=== PATIENT | male | born 1950 | race Caucasian/White ===

== ENCOUNTER 2019-12-16 10:58 | Inpatient (IN) | payer BC ==
[2019-12-16] MEDS ORDERED: Ketorolac 30 MG/ML SDV IVPUSH ONE (11:18)
--- NOTE | 2019-12-16 11:18 | EDM.PDOC ---
ED HPI GENERAL MEDICAL PROBLEM - General Chief Complaint: Skin Complaint Stated Complaint: GROWTH/ABCESS Time Seen by Provider: 12/16/19 10:59 Source of Information: Reports: Patient History Limitations: Reports: No Limitations - History of Present Illness INITIAL COMMENTS - FREE TEXT/NARRATIVE: HISTORY AND PHYSICAL: History of present illness: Patient is a 69-year-old male who presents to the emergency room with complaints of an abscess on his tailbone x 1 week. He states he has had a lot of pain and pressure to the tailbone and can feel a "growth"- especially when he sits down. He denies feeling any drainage from the area. He states in 2013 he had a similar abscess that had to be drained and he was able to be discharged with antibiotics. Patient denies any fever, chills, headache, change in vision, syncope or near syncope. Denies any chest pain, back pain, shortness of breath or cough. Denies any abdominal pain, nausea, vomiting, diarrhea, constipation or dysuria. Has not noted any blood in urine or stool. Patient has been eating and drinking appropriately. Review of systems: As per history of present illness and below otherwise all systems reviewed and negative. Past medical history: As per history of present illness and as reviewed below otherwise noncontributory. Surgical history: As per history of present illness and as reviewed below otherwise noncontributory. Social history: See social history for further information Family history: As per history of present illness and as reviewed below otherwise noncontributory. Physical exam: General: Well developed and well nourished 69-year-old male. Alert and oriented. Nontoxic-appearing and in no acute distress. HEENT: Atraumatic, normocephalic, pupils equal and reactive bilaterally, negative for conjunctival pallor or scleral icterus, mucous membranes moist, TMs normal bilaterally, throat clear, neck supple, nontender, trachea midline. No drooling or trismus noted. No meningeal signs. No hot potato voice noted. Lungs: Clear to auscultation, breath sounds equal bilaterally, chest nontender. Heart: S1S2, regular rate and rhythm without overt murmur Abdomen: Soft, nondistended, nontender. Negative for masses or hepatosplenomegaly. Negative for costovertebral tenderness. Pelvis: Stable nontender. Rectal: Good rectal tone. Unable to palpate the abscess that is approximately 2 fingerbreadths above the rectum. See SKIN for details of abscess. Skin: Quarter sized area of maceration with serosanguanous drainage. Fluctuant and very tender to touch. Surrounding erythema. Remaining skin is intact, warm, dry. No lesions or rashes noted. Extremities: Atraumatic, moves all extremities per self without difficulty or deficits, negative for cords or calf pain. Neurovascular unremarkable. Neuro: Awake, alert, oriented. Cranial nerves II through XII unremarkable. Cerebellum unremarkable. Motor and sensory unremarkable throughout. Exam nonfocal. Notes: CT had some delays as the report was not crossing over. Physical copy of the CT shows soft tissue fullness is seen in the right side of the rectum. Borders of this are ill-defined and measure around 5.2 cm. No well-defined abscess is seen. Radiographically this finding may represent infection as well as neoplasm. Patient does have an elevated white count. Elevated lactate; NS bolus initiated. Dr. Interiano, hospitalist on-call, was consulted on this patient. He wants to come and evaluate the patient before admission. He did recommend vancomycin, blood cultures and lactate be ordered at this time. Patient was made aware of the CT findings and is agreeable to plan of care. Diagnostics: CBC, CMP, Pelvis CT, BC, x2, lactic Therapeutics: Toradol, Morphine, NS, Vancomycin Impression: Gluteal Cellulitis and perirectal abscess Plan: Inpatient admission Definitive disposition and diagnosis as appropriate pending reevaluation and review of above. Left Buttock Pain Score (Numeric/FACES): 8 - Related Data Allergies Allergy/AdvReac Type Severity Reaction Status Date / Time No Known Allergies Allergy Verified 12/16/19 11:23 Home Meds: Home Meds Aspirin [Anuja Chewable Aspirin] 1 tab PO DAILY 07/22/14 [History] ED ROS GENERAL - Review of Systems Review Of Systems: Comprehensive ROS is negative, except as noted in HPI. ED EXAM, SKIN/RASH Exam: See Below (See dictation) Course - Vital Signs Last Recorded V/S: Last Vital Signs Temp 97.8 F 12/16/19 13:51 Pulse 118 H 12/16/19 13:51 Resp 16 12/16/19 13:51 BP 159/105 H 12/16/19 13:51 Pulse Ox 96 12/16/19 13:51 - Orders/Labs/Meds Orders: Active Orders 24 hr Category Date Time Status Admission Status [Patient Status] [ADT] Stat ADT 12/16/19 14:46 Active Pelvis w Cont [CT] Stat Exams 12/16/19 11:13 Taken CULTURE BLOOD [BC] Stat Lab 12/16/19 13:55 Received CULTURE BLOOD [BC] Stat Lab 12/16/19 14:06 Received Sodium Chloride 0.9% [Normal Saline] 1,000 ml Med 12/16/19 13:36 Active IV STAT Vancomycin 1 gm Med 12/16/19 13:47 Active Sodium Chloride 0.9% [Normal Saline (AdvBag)] 250 ml IV ONETIME Blood Culture x2 Reflex Set [OM.PC] Stat Oth 12/16/19 13:47 Ordered Medication Orders Sodium Chloride (Normal Saline) 1,000 mls @ 125 mls/hr IV STAT ONE Stop: 12/16/19 21:35 Last Infusion: 12/16/19 14:48 Dose: 999 mls/hr Admin: 12/16/19 13:40 Dose: 125 mls/hr Vancomycin HCl 1 gm/ Sodium (Chloride) 250 mls @ 166 mls/hr IV ONETIME ONE Stop: 12/16/19 15:17 Last Admin: 12/16/19 14:22 Dose: 166 mls/hr Labs: Laboratory Tests 12/16/19 12/16/19 12/16/19 Range/Units 11:27 11:27 13:55 WBC 11.74 H (4.0-11.0) K/uL RBC 5.42 (4.50-5.90) M/uL Hgb 19.2 H (13.0-17.0) g/dL Hct 51.8 H (38.0-50.0) % MCV 95.6 (80.0-98.0) fL MCH 35.4 H (27.0-32.0) pg MCHC 37.1 H (31.0-37.0) g/dL RDW Std Deviation 42.1 (28.0-62.0) fl RDW Coeff of Sara 12 (11.0-15.0) % Plt Count 162 (150-400) K/uL MPV 11.20 (7.40-12.00) fL Neut % (Auto) 67.7 (48.0-80.0) % Lymph % (Auto) 19.8 (16.0-40.0) % [place] % (Auto) 11.8 (0.0-15.0) % Eos % (Auto) 0.3 (0.0-7.0) % Baso % (Auto) 0.4 (0.0-1.5) % Neut # (Auto) 7.9 H (1.4-5.7) K/uL Lymph # (Auto) 2.3 (0.6-2.4) K/uL [place] # (Auto) 1.4 H (0.0-0.8) K/uL Eos # (Auto) 0.0 (0.0-0.7) K/uL Baso # (Auto) 0.1 (0.0-0.1) K/uL Nucleated RBC % 0.0 /100WBC Nucleated RBCs # 0 K/uL Lactate 2.4 H* (0.20-2.00) mmol/L Sodium 133 L (136-148) mmol/L Potassium 4.0 (3.5-5.1) mmol/L Chloride 93 L (98-107) mmol/L Carbon Dioxide 24.3 (21.0-32.0) mmol/L BUN 8 (7.0-18.0) mg/dL Creatinine 1.0 (0.8-1.3) mg/dL Est Cr Clr Drug Dosing 74.01 mL/min Estimated GFR (MDRD) > 60.0 ml/min Glucose 347 H (74-106) mg/dL Calcium 10.0 (8.5-10.1) mg/dL Total Bilirubin 1.0 (0.2-1.0) mg/dL AST 112 H (15-37) IU/L ALT 142 H (14-63) IU/L Alkaline Phosphatase 137 H (46-116) U/L Total Protein 8.3 H (6.4-8.2) g/dL Albumin 3.8 (3.4-5.0) g/dL Globulin 4.5 H (2.6-4.0) g/dL Albumin/Globulin Ratio 0.8 L (0.9-1.6) Meds: Medications Generic Name Dose Route Start Last Admin Trade Name Freq PRN Reason Stop Dose Admin Sodium Chloride 1,000 mls @ 125 mls/hr 12/16/19 13:36 12/16/19 14:48 Normal Saline IV 12/16/19 21:35 999 mls/hr STAT ONE Infusion Vancomycin HCl 1 gm/ Sodium 250 mls @ 166 mls/hr 12/16/19 13:47 12/16/19 14: 22 Chloride IV 12/16/19 15:17 166 mls/hr ONETIME ONE Administration Discontinued Medications Generic Name Dose Route Start Last Admin Trade Name Debby PRN Reason Stop Dose Admin Ketorolac Tromethamine 30 mg 12/16/19 11:18 12/16/19 11:35 Toradol IVPUSH 12/16/19 11:19 30 mg ONETIME ONE Administration Lidocaine HCl 5 ml 12/16/19 12:52 Xylocaine-Mpf 1% INJECT 12/16/19 12:53 ONETIME ONE Morphine Sulfate 2 mg 12/16/19 13:53 12/16/19 14:23 Morphine IVPUSH 12/16/19 13:54 2 mg ONETIME ONE Administration Departure - Departure Time of Disposition: 14:50 Disposition: Admitted As Inpatient 68 Clinical Impression: Perirectal abscess Cellulitis Qualifiers: Site of cellulitis: buttock Qualified Code(s): L03.317 - Cellulitis of buttock - Discharge Information Referrals: Momo Perry MD [Primary Care Provider] - Forms: ED Department Discharge Sepsis Event Note - Focused Exam Vital Signs: Vital Signs Temp Pulse Resp BP Pulse Ox 12/16/19 13:51 97.8 F 118 H 16 159/105 H 96 12/16/19 11:21 98.3 F 122 H 19 168/100 H 97 Date Exam was Performed: 12/16/19 Time Exam was Performed: 14:48 - My Orders Last 24 Hours: My Active Orders 12/16/19 11:13 Pelvis w Cont [CT] Stat 12/16/19 13:36 Sodium Chloride 0.9% [Normal Saline] 1,000 ml IV STAT 12/16/19 13:47 Vancomycin 1 gm Sodium Chloride 0.9% [Normal Saline (AdvBag)] 250 ml IV ONETIME Blood Culture x2 Reflex Set [OM.PC] Stat 12/16/19 13:55 CULTURE BLOOD [BC] Stat 12/16/19 14:06 CULTURE BLOOD [BC] Stat 12/16/19 14:46 Admission Status [Patient Status] [ADT] Stat - Assessment/Plan Last 24 Hours: My Active Orders 12/16/19 11:13 Pelvis w Cont [CT] Stat 12/16/19 13:36 Sodium Chloride 0.9% [Normal Saline] 1,000 ml IV STAT 12/16/19 13:47 Vancomycin 1 gm Sodium Chloride 0.9% [Normal Saline (AdvBag)] 250 ml IV ONETIME Blood Culture x2 Reflex Set [OM.PC] Stat 12/16/19 13:55 CULTURE BLOOD [BC] Stat 12/16/19 14:06 CULTURE BLOOD [BC] Stat 12/16/19 14:46 Admission Status [Patient Status] [ADT] Stat
[2019-12-16 12:13] LABS: BLOOD UREA NITROGEN,BUN 8 mg/dL (7.0-18.0); CARBON DIOXIDE,CO2 24.3 mmol/L (21.0-32.0); CHLORIDE,CL 93 mmol/L (98-107); GLUCOSE RANDOM 347 mg/dL (74-106); SODIUM,NA 133 mmol/L (136-148)
[2019-12-16] MEDS ORDERED: Sodium Chloride 0.9% 1,000 ML IV ONE (13:36)
[2019-12-16] MEDS ORDERED: Morphine 2 MG/ML Syringe IVPUSH ONE (13:53)
--- NOTE | 2019-12-16 15:43 | PCM.HP.2 ---
H&P History of Present Illness - General Date of Service: 12/16/19 Admit Problem/Dx: Admission Diagnosis/Problem Admission Diagnosis/Problem Perirectal abscess - History of Present Illness Initial Comments - Free Text/Narative: 69 yo male who presents with several day history of pain and pressure above his rectum. He has notice purulent drainage. In the ED it started to drain alot more and he felt the pressure relieve. He reports several years ago have a perirectal abscess that was treated with antibiotics. He denies any fevers. Left Buttock Pain Score (Numeric/FACES): 8 - Related Data Allergies/Adverse Reactions: Allergies Allergy/AdvReac Type Severity Reaction Status Date / Time No Known Allergies Allergy Verified 12/16/19 11:23 Home Medications: Home Meds Aspirin [Anuja Chewable Aspirin] 1 tab PO DAILY 07/22/14 [History] Past Medical History Cardiovascular History: Reports: High Cholesterol, Hypertension Dermatologic History: Reports: Other (See Below) Other Dermatologic History: Surigcal draining of abscess - Infectious Disease History Infectious Disease History: Reports: Chicken Pox, Mumps - Past Surgical History Cardiovascular Surgical History: Reports: None Dermatological Surgical History: Reports: None Social & Family History - Family History Family Medical History: Noncontributory - Tobacco Use Smoking Status *Q: Current Every Day Smoker Years of Tobacco use: 30 Packs/Tins Daily: 1 - Caffeine Use Caffeine Use: Reports: Coffee, Soda - Recreational Drug Use Recreational Drug Use: No H&P Review of Systems - Review of Systems: Review Of Systems: Comprehensive ROS is negative, except as noted in HPI. Exam - Exam Exam: See Below - Vital Signs Vital Signs: Last Vital Signs Temp 36.6 C 12/16/19 13:51 Pulse 118 H 12/16/19 13:51 Resp 16 12/16/19 13:51 BP 159/105 H 12/16/19 13:51 Pulse Ox 96 12/16/19 13:51 Weight: 90.718 kg - Exam General: Alert, Oriented HEENT: Mucosa Moist & [place] Neck: Supple Lungs: Clear to Auscultation, Normal Respiratory Effort Cardiovascular: Regular Rate, Regular Rhythm GI/Abdominal Exam: Soft, Non-Tender Rectal (Males) Exam: Other (4-5 cm area of induration above the rectum with central area of fluctuance, no purulent dranage was noted but bed and breif was wet with rust colored fluid) - Patient Data Lab Results Last 24 hrs: Laboratory Results - last 24 hr 12/16/19 12/16/19 12/16/19 Range/Units 11:27 11:27 13:55 WBC 11.74 H (4.0-11.0) K/uL RBC 5.42 (4.50-5.90) M/uL Hgb 19.2 H (13.0-17.0) g/dL Hct 51.8 H (38.0-50.0) % MCV 95.6 (80.0-98.0) fL MCH 35.4 H (27.0-32.0) pg MCHC 37.1 H (31.0-37.0) g/dL RDW Std Deviation 42.1 (28.0-62.0) fl RDW Coeff of Sara 12 (11.0-15.0) % Plt Count 162 (150-400) K/uL MPV 11.20 (7.40-12.00) fL Neut % (Auto) 67.7 (48.0-80.0) % Lymph % (Auto) 19.8 (16.0-40.0) % [place] % (Auto) 11.8 (0.0-15.0) % Eos % (Auto) 0.3 (0.0-7.0) % Baso % (Auto) 0.4 (0.0-1.5) % Neut # (Auto) 7.9 H (1.4-5.7) K/uL Lymph # (Auto) 2.3 (0.6-2.4) K/uL [place] # (Auto) 1.4 H (0.0-0.8) K/uL Eos # (Auto) 0.0 (0.0-0.7) K/uL Baso # (Auto) 0.1 (0.0-0.1) K/uL Nucleated RBC % 0.0 /100WBC Nucleated RBCs # 0 K/uL Lactate 2.4 H* (0.20-2.00) mmol/L Sodium 133 L (136-148) mmol/L Potassium 4.0 (3.5-5.1) mmol/L Chloride 93 L (98-107) mmol/L Carbon Dioxide 24.3 (21.0-32.0) mmol/L BUN 8 (7.0-18.0) mg/dL Creatinine 1.0 (0.8-1.3) mg/dL Est Cr Clr Drug Dosing 74.01 mL/min Estimated GFR (MDRD) > 60.0 ml/min Glucose 347 H (74-106) mg/dL Calcium 10.0 (8.5-10.1) mg/dL Total Bilirubin 1.0 (0.2-1.0) mg/dL AST 112 H (15-37) IU/L ALT 142 H (14-63) IU/L Alkaline Phosphatase 137 H (46-116) U/L Total Protein 8.3 H (6.4-8.2) g/dL Albumin 3.8 (3.4-5.0) g/dL Globulin 4.5 H (2.6-4.0) g/dL Albumin/Globulin Ratio 0.8 L (0.9-1.6) Result Diagrams: 12/17/19 06:55 12/17/19 06:55 Sepsis Event Note - Evaluation Sepsis Screening Result: No Definite Risk - Focused Exam Vital Signs: Vital Signs Temp Pulse Resp BP Pulse Ox 12/16/19 13:51 36.6 C 118 H 16 159/105 H 96 12/16/19 11:21 36.8 C 122 H 19 168/100 H 97 Date Exam was Performed: 12/17/19 Time Exam was Performed: 08:04 Problem List Initiated/Reviewed/Updated: Yes Orders Last 24hrs: Active Orders 24 hr Category Date Time Status Admission Status [Patient Status] [ADT] Stat ADT 12/16/19 14:46 Active Antiembolic Devices [RC] PER UNIT ROUTINE Care 12/16/19 15:31 Ordered Blood Glucose Check, Bedside [RC] TIDMEALS Care 12/16/19 15:30 Ordered Oxygen Therapy [RC] PRN Care 12/16/19 15:30 Ordered Up ad Kendra [RC] ASDIRECTED Care 12/16/19 15:30 Ordered VTE/DVT Education [RC] PER UNIT ROUTINE Care 12/16/19 15:30 Ordered Vital Signs [RC] Q4H Care 12/16/19 15:30 Ordered [employer] [employer] Diet [DIET] Diet 12/16/19 Breakfast Ordered Pelvis w Cont [CT] Stat Exams 12/16/19 11:13 Taken BASIC METABOLIC PANEL,BMP [CHEM] AM Lab 12/17/19 05:11 Ordered CBC WITH AUTO DIFF [HEME] AM Lab 12/17/19 05:11 Ordered CULTURE BLOOD [BC] Stat Lab 12/16/19 13:55 Received CULTURE BLOOD [BC] Stat Lab 12/16/19 14:06 Received LACTIC ACID,WHOLE BLOOD [BG] Q6H Lab 12/16/19 19:00 Ordered LACTIC ACID,WHOLE BLOOD [BG] Q6H Lab 12/17/19 01:00 Ordered LACTIC ACID,WHOLE BLOOD [BG] Q6H Lab 12/17/19 07:00 Ordered Pharmacy to Dose - Vancomycin Med 12/16/19 15:30 Ordered 1 dose .XX ASDIRECTED Piperacillin/Tazobactam [Piperacil-Tazobact] 3.375 gm Med 12/16/19 15:30 Ordered Sodium Chloride 0.9% [Normal Saline] 50 ml IV Q6H Sodium Chloride 0.9% [Normal Saline] 1,000 ml Med 12/16/19 13:36 Active IV STAT Blood Culture x2 Reflex Set [OM.PC] Stat Oth 12/16/19 13:47 Ordered Sequential Compression Device [OM.PC] Per Unit Routine Oth 12/16/19 15:30 Ordered Resuscitation Status Routine Resus Stat 12/16/19 15:30 Ordered Medication Orders Sodium Chloride (Normal Saline) 1,000 mls @ 125 mls/hr IV STAT ONE Stop: 12/16/19 21:35 Last Infusion: 12/16/19 14:49 Dose: 300 mls/hr Infusion: 12/16/19 14:48 Dose: 999 mls/hr Admin: 12/16/19 13:40 Dose: 125 mls/hr Piperacillin Sod/Tazobactam (Sod 3.375 gm/ Sodium Chloride) 50 mls @ 100 mls/ hr IV Q6H [facility] Vancomycin HCl (Pharmacy To Dose - Vancomycin) 1 dose .XX ASDIRECTED [facility] Assessment/Plan Comment:: 69 yo male admitted for perirectal abscess with sepsis. We will treat with Vancomycin and Zosyn. Patient feeling better after IV fluids. We will trend lactic acid. Dr. Lira has been consulted
[2019-12-16] MEDS ORDERED: Iopamidol 755 MG/ML 200 ML Multipack Bottle IVPUSH STA (15:59)
[2019-12-16] MEDS: Piperacillin/Tazobactam 3.375 GM in Sodium Chloride 0.9% 50 ML IV SCH ×2 (16:52→21:45)
[2019-12-16] MEDS: Sodium Chloride 0.9% 1,000 ML IV SCH (17:05)
[2019-12-16] MEDS ORDERED: Acetaminophen 325 MG Tab PO PRN (17:32)
[2019-12-16] MEDS: Nicotine 14 MG/24 Hr Patch TRDERM SCH (17:57)
[2019-12-16] MEDS: oxyCODONE 5 MG Tab PO PRN ×2 (17:58→23:39)
[2019-12-16] MEDS: Morphine 2 MG/ML Syringe IVPUSH PRN ×2 (17:59→21:47)
[2019-12-16] MEDS ORDERED: Insulin Aspart 100 Units/ML 3 ML Pen ONE (18:08)
[2019-12-16] MEDS ORDERED: Morphine 4 MG/ML Syringe IVPUSH ONE (19:30)
--- NOTE | 2019-12-16 19:33 | CT ---
CT pelvis Technique: Multiple axial sections through the pelvis were obtained. Reconstructed coronal and sagittal images were obtained. Intravenous contrast was utilized. No oral or rectal contrast was given. Findings: Soft tissue fullness is seen to the right side of the rectum. Borders of this are ill-defined and measure around 5.2 cm. No well-defined abscess is seen. Radiographically this finding may represent infection as well as neoplasm. Perirectal fat is preserved. Other findings: Minimal cyst is noted within the right kidney. Appendix is felt to be visualized and is normal. No pelvic mass or adenopathy is seen. Bone window settings were reviewed which show no acute osseous finding. Degenerative change visualized within the spine with anterior osteophytes as well as vacuum disc phenomena within the L5-S1 disc. Degenerative apophyseal change is also noted. Impression: 1. Soft tissue fullness to the right side of the rectum. No well-defined abscess is seen. As mentioned above, this finding may represent infection as well as neoplasm. 2. Other findings as noted above which are felt to be nonacute and incidental. Diagnostic code #3 Study was dictated in MDT MTDD
--- NOTE | 2019-12-16 19:35 | PCM.SN ---
- Free Text/Narrative Note: pt seen, chart reviewed; perirectal abscess, would benefit timely i/d; pt concurred, proceed w id; [id number]
[2019-12-16] MEDS ORDERED: Lidocaine 1% with EPINEPHrine 1:100,000 10 ML MDV INJECT ONE (19:42)
--- NOTE | 2019-12-16 20:29 | PCM.OPNOTE ---
- General Post-Op/Procedure Note Date of Surgery/Procedure: 12/16/19 Operative Procedure(s): i/d perirectal abscess Findings: large amt foul smelling, 75 cc necrotic liquified pus rushing out, wound 2.1 cm , packed w 1/4 in iodoform gauze;[id number] Pre Op Diagnosis: perirectal abscess Post-Op Diagnosis: Same Anesthesia Technique: Local Primary Surgeon: Bhavik Lira Pathology: gstain, c n s Complications: None Condition: Fair Free Text/Narrative:: Intake & Output 12/16/19 12/16/19 12/16/19 06:59 14:59 22:59 Intake Total 999 Balance 999
--- NOTE | 2019-12-16 20:35 | PCM.SN ---
- Free Text/Narrative Note: i/d done at bedside; pt can be discharged home in the morning from surg standpoint; wound care, 1) warm water sitz bath every BM till wound heal; 2) clindamycin 300 mg po tid X 1 wk 3) wound packing change everyday using iodoform gauze 10/06; scripts for abx and pain meds written; tks for the consult and care of this nice gentleman; if dc home, rhianna amador 1 - 2 wks
--- NOTE | 2019-12-17 00:06 | OR ---
SURGEON: Bhavik Lira MD DATE OF PROCEDURE: 12/16/2019 PREOPERATIVE DIAGNOSIS: Perirectal abscess. POSTOPERATIVE DIAGNOSIS: Perirectal abscess. PROCEDURE PERFORMED: Incision and drainage. PRIMARY SURGEON: Bhavik Lira MD. COMPLICATIONS: None. FINDING: A large amount of foul smelling 75 mL necrotic liquified pus rushing out, and the wound is 2.1 cm, packed with quarter-inch iodoform gauze. DESCRIPTION OF PROCEDURE: Procedure performed at bedside after informed consent given. The patient has signed consent and risks and benefits discussed. Procedure then started. The patient was in a left decub position, left side down, right side up, and the perineum area was prepped and draped in a sterile fashion, and using 1% lidocaine with epi, the area was numbed and using a 15 blade, a small incision was made right at the fluctuance area, resulting in a large amount of foul smelling necrotic liquified pus coming out, followed with surgeon's finger to dislodge all the loculation, and the wound was then packed with a quarter-inch iodoform gauze and appropriate dressing. The patient tolerated the procedure well. There were no intraoperative complications. Dr. Lira was present through the whole procedure. Gram stain C and S sent from drainage. NELA / LEONEL /[id number]
--- NOTE | 2019-12-17 00:27 | CONS ---
DATE OF CONSULTATION: 12/16/2019 DATE OF : 1950 PRIMARY CARE PHYSICIAN: Momo Perry M.D. Consult was called by Dr. Interiano. The patient is seen shortly after. REASON FOR CONSULTATION: Concerning question, perirectal abscess. HISTORY OF PRESENT ILLNESS: The patient is 69 years old morbidly obese gentleman, heavy smoker and complaining with a 10-day history of gradual onset of rectal pain, seen in emergency room today and was admitted to medical for further management. In the emergency room, apparently it ruptured and drained a lot. The patient's pain is relieved. The patient denied fever, chills, or diarrhea. PAST MEDICAL HISTORY: Significant for prediabetic. No DC, CVA, hypertension. Mallampati classification, the patient is class III and denied any past history of malignant hyperthermia. PAST SURGICAL HISTORY: No abdominal surgery. The patient does have a history of a perirectal abscess drained 20 years ago. ALLERGIES: Please refer to nursing for details. MEDICATION: Please refer to nursing for details. PHYSICAL EXAMINATION: GENERAL: A very pleasant gentleman, in no acute distress. HEENT: Normocephalic and atraumatic. Sclerae anicteric. LUNGS: Clear to auscultation. HEART: Regular rate and rhythm. ABDOMEN: Soft, nondistended. No pulsating tender midline abdominal structure. : Male. The patient is in prone position. On the right side almost like in the sacral area there is blister-like fluctuance. There is no sacral tenderness and no expressed material. It is pretty full. Whatever the situation is, it looks like it has been refilled, although it has been ruptured. RECOMMENDATION: Bedside I and D and followed with Wound Care with dressing change and plan has been discussed with patient. The patient is thinking about it. If not bedside I and D, we will take to the operating room for I and D and follow with Wound Care. Benefits in this particular situation, risks involved with postoperative course, pain and wound care and dressing change as well as recurrence as the patient is a heavy smoker. As always, thank you for your kind referral. NELA / LEONEL /[id number]
[2019-12-17] MEDS: Morphine 2 MG/ML Syringe IVPUSH PRN ×2 (01:44→06:19)
[2019-12-17] MEDS: Piperacillin/Tazobactam 3.375 GM in Sodium Chloride 0.9% 50 ML IV SCH ×2 (04:02→11:13)
[2019-12-17] MEDS ORDERED: Sodium Chloride 0.9% 500 ML IV SCH (05:45)
[2019-12-17 07:18] LABS: BLOOD UREA NITROGEN,BUN 6 mg/dL (7.0-18.0); CHLORIDE,CL 100 mmol/L (98-107); GLUCOSE RANDOM 297 mg/dL (74-106); POTASSIUM,K 4.2 mmol/L (3.5-5.1); SODIUM,NA 135 mmol/L (136-148)
[2019-12-17] MEDS ORDERED: Insulin Aspart 100 Units/ML 3 ML Pen SUBCUT SCH (07:30)
[2019-12-17] MEDS: Sodium Chloride 0.9% 1,000 ML IV SCH (07:32)
[2019-12-17 07:48] VITALS: BP 129/64; PULSE 67
--- NOTE | 2019-12-17 07:56 | PCM.DCSUM1 ---
Discharge Summary - Discharge Data Discharge Date: 12/17/19 Discharge Disposition: Home, Self-Care 01 Condition: Fair - Referral to Home Health Primary Care Physician: Momo Perry MD - Patient Summary/Data Operative Procedure(s) Performed: i/d perirectal abscess Hospital Course: 69 yo male who was admitted for a perirectal abscess. He presents with several day history of pain and pressure above his rectum. WBC was 11,000 and Lactic acid was 2.4. CT scan of the pelvis showed a 5 cm tissue fullness on the right of the rectum. He was treated with Vancomycin, Zosyn, and IV fluids. Dr. Lira was consulted and performed and I&D of the perirectal abscess. The following morning his tachycardia, leukocytosis and lactic acid returned to normal. He is requesting discharge today. Patient is to be discharge with a week of clindamycin, percocet and to follow up with Dr. Lira. - Discharge Plan Home Medications: Home Meds Aspirin [Anuja Chewable Aspirin] 1 tab PO DAILY 07/22/14 [History] Referrals: Momo Perry MD [Primary Care Provider] - Bhavik Lira MD [Physician] - - Discharge Summary/Plan Comment DC Time >30 min.: No - Patient Data Vitals - Most Recent: Last Vital Signs Temp 36.1 C 12/17/19 04:01 Pulse 76 12/17/19 04:01 Resp 17 12/17/19 04:01 BP 139/69 12/17/19 04:01 Pulse Ox 98 12/17/19 04:01 Weight - Most Recent: 896.032 kg I&O - Last 24 hours: Intake & Output 12/16/19 12/17/19 12/17/19 22:59 06:59 14:59 Intake Total 999 3290 Output Total 950 Balance 999 2340 Lab Results - Last 24 hrs: Laboratory Results - last 24 hr 12/16/19 12/16/19 12/16/19 Range/Units 11:27 11:27 13:55 WBC 11.74 H (4.0-11.0) K/uL RBC 5.42 (4.50-5.90) M/uL Hgb 19.2 H (13.0-17.0) g/dL Hct 51.8 H (38.0-50.0) % MCV 95.6 (80.0-98.0) fL MCH 35.4 H (27.0-32.0) pg MCHC 37.1 H (31.0-37.0) g/dL RDW Std Deviation 42.1 (28.0-62.0) fl RDW Coeff of Sara 12 (11.0-15.0) % Plt Count 162 (150-400) K/uL MPV 11.20 (7.40-12.00) fL Neut % (Auto) 67.7 (48.0-80.0) % Lymph % (Auto) 19.8 (16.0-40.0) % Esmeralda % (Auto) 11.8 (0.0-15.0) % Eos % (Auto) 0.3 (0.0-7.0) % Baso % (Auto) 0.4 (0.0-1.5) % Neut # (Auto) 7.9 H (1.4-5.7) K/uL Lymph # (Auto) 2.3 (0.6-2.4) K/uL Esmeralda # (Auto) 1.4 H (0.0-0.8) K/uL Eos # (Auto) 0.0 (0.0-0.7) K/uL Baso # (Auto) 0.1 (0.0-0.1) K/uL Nucleated RBC % 0.0 /100WBC Nucleated RBCs # 0 K/uL Lactate 2.4 H* (0.20-2.00) mmol/L Sodium 133 L (136-148) mmol/L Potassium 4.0 (3.5-5.1) mmol/L Chloride 93 L (98-107) mmol/L Carbon Dioxide 24.3 (21.0-32.0) mmol/L BUN 8 (7.0-18.0) mg/dL Creatinine 1.0 (0.8-1.3) mg/dL Est Cr Clr Drug Dosing 74.01 mL/min Estimated GFR (MDRD) > 60.0 ml/min Glucose 347 H (74-106) mg/dL POC Glucose (60-110) mg/dL Calcium 10.0 (8.5-10.1) mg/dL Total Bilirubin 1.0 (0.2-1.0) mg/dL AST 112 H (15-37) IU/L ALT 142 H (14-63) IU/L Alkaline Phosphatase 137 H (46-116) U/L Total Protein 8.3 H (6.4-8.2) g/dL Albumin 3.8 (3.4-5.0) g/dL Globulin 4.5 H (2.6-4.0) g/dL Albumin/Globulin Ratio 0.8 L (0.9-1.6) 12/16/19 12/16/19 12/17/19 Range/Units 17:13 19:19 01:08 WBC (4.0-11.0) K/uL RBC (4.50-5.90) M/uL Hgb (13.0-17.0) g/dL Hct (38.0-50.0) % MCV (80.0-98.0) fL MCH (27.0-32.0) pg MCHC (31.0-37.0) g/dL RDW Std Deviation (28.0-62.0) fl RDW Coeff of Sara (11.0-15.0) % Plt Count (150-400) K/uL MPV (7.40-12.00) fL Neut % (Auto) (48.0-80.0) % Lymph % (Auto) (16.0-40.0) % Esmeralda % (Auto) (0.0-15.0) % Eos % (Auto) (0.0-7.0) % Baso % (Auto) (0.0-1.5) % Neut # (Auto) (1.4-5.7) K/uL Lymph # (Auto) (0.6-2.4) K/uL Esmeralda # (Auto) (0.0-0.8) K/uL Eos # (Auto) (0.0-0.7) K/uL Baso # (Auto) (0.0-0.1) K/uL Nucleated RBC % /100WBC Nucleated RBCs # K/uL Lactate 2.1 H* 2.3 H* (0.20-2.00) mmol/L Sodium (136-148) mmol/L Potassium (3.5-5.1) mmol/L Chloride (98-107) mmol/L Carbon Dioxide (21.0-32.0) mmol/L BUN (7.0-18.0) mg/dL Creatinine (0.8-1.3) mg/dL Est Cr Clr Drug Dosing mL/min Estimated GFR (MDRD) ml/min Glucose (74-106) mg/dL POC Glucose 215 H (60-110) mg/dL Calcium (8.5-10.1) mg/dL Total Bilirubin (0.2-1.0) mg/dL AST (15-37) IU/L ALT (14-63) IU/L Alkaline Phosphatase (46-116) U/L Total Protein (6.4-8.2) g/dL Albumin (3.4-5.0) g/dL Globulin (2.6-4.0) g/dL Albumin/Globulin Ratio (0.9-1.6) 12/17/19 12/17/19 12/17/19 Range/Units 06:55 06:55 06:55 WBC 7.74 (4.0-11.0) K/uL RBC 4.33 L (4.50-5.90) M/uL Hgb 14.6 (13.0-17.0) g/dL Hct 42.1 (38.0-50.0) % MCV 97.2 (80.0-98.0) fL MCH 33.7 H (27.0-32.0) pg MCHC 34.7 (31.0-37.0) g/dL RDW Std Deviation 43.1 (28.0-62.0) fl RDW Coeff of Sara 12 (11.0-15.0) % Plt Count 157 (150-400) K/uL MPV 9.60 (7.40-12.00) fL Neut % (Auto) 50.6 (48.0-80.0) % Lymph % (Auto) 31.3 (16.0-40.0) % Esmeralda % (Auto) 14.1 (0.0-15.0) % Eos % (Auto) 3.2 (0.0-7.0) % Baso % (Auto) 0.8 (0.0-1.5) % Neut # (Auto) 3.9 (1.4-5.7) K/uL Lymph # (Auto) 2.4 (0.6-2.4) K/uL Esmeralda # (Auto) 1.1 H (0.0-0.8) K/uL Eos # (Auto) 0.3 (0.0-0.7) K/uL Baso # (Auto) 0.1 (0.0-0.1) K/uL Nucleated RBC % 0.0 /100WBC Nucleated RBCs # 0 K/uL Lactate 1.2 (0.20-2.00) mmol/L Sodium 135 L (136-148) mmol/L Potassium 4.2 (3.5-5.1) mmol/L Chloride 100 (98-107) mmol/L Carbon Dioxide 27.0 (21.0-32.0) mmol/L BUN 6 L (7.0-18.0) mg/dL Creatinine 0.8 (0.8-1.3) mg/dL Est Cr Clr Drug Dosing 92.52 mL/min Estimated GFR (MDRD) > 60.0 ml/min Glucose 297 H (74-106) mg/dL POC Glucose (60-110) mg/dL Calcium 8.2 L (8.5-10.1) mg/dL Total Bilirubin (0.2-1.0) mg/dL AST (15-37) IU/L ALT (14-63) IU/L Alkaline Phosphatase (46-116) U/L Total Protein (6.4-8.2) g/dL Albumin (3.4-5.0) g/dL Globulin (2.6-4.0) g/dL Albumin/Globulin Ratio (0.9-1.6) Med Orders - Current: Current Medications Acetaminophen (Tylenol) 650 mg PO Q6H PRN PRN Reason: Pain (mild 1-3) Piperacillin Sod/Tazobactam (Sod 3.375 gm/ Sodium Chloride) 50 mls @ 100 mls/ hr IV Q6H [facility] Last Admin: 12/17/19 04:02 Dose: 100 mls/hr Sodium Chloride (Normal Saline) 1,000 mls @ 125 mls/hr IV ASDIRECTED [facility] Last Admin: 12/17/19 07:32 Dose: 125 mls/hr Vancomycin HCl 1.5 gm/ Premix 300 mls @ 150 mls/hr IV Q12H [facility] Last Admin: 03/15/20 23:40 Dose: 150 mls/hr Sodium Chloride (Normal Saline) 500 mls @ 1,000 mls/hr IV .BOLUS LILIANA Last Admin: 12/17/19 06:14 Dose: 1,000 mls/hr Insulin Aspart (Novolog) 0 unit SUBCUT TIDAC [facility]; Protocol Morphine Sulfate (Morphine) 2 mg IVPUSH Q3H PRN PRN Reason: Pain (severe 7-10) Last Admin: 12/17/19 06:19 Dose: 2 mg Nicotine (Habitrol) 14 mg TRDERM DAILY [facility] Last Admin: 12/16/19 17:57 Dose: 14 mg Oxycodone HCl (Oxycodone) 5 mg PO Q4H PRN PRN Reason: Pain (moderate 4-6) Last Admin: 12/16/19 23:39 Dose: 5 mg Vancomycin HCl (Pharmacy To Dose - Vancomycin) 1 dose .XX ASDIRECTED [facility] Discontinued Medications Sodium Chloride (Normal Saline) 1,000 mls @ 125 mls/hr IV STAT ONE Stop: 12/16/19 21:35 Last Infusion: 12/16/19 15:48 Dose: 999 mls/hr Vancomycin HCl 1 gm/ Sodium (Chloride) 250 mls @ 166 mls/hr IV ONETIME ONE Stop: 12/16/19 15:17 Last Admin: 12/16/19 14:22 Dose: 166 mls/hr Vancomycin HCl 1.5 gm/ Premix 300 mls @ 150 mls/hr IV Q12H [facility] Last Admin: 12/17/19 05:29 Dose: Not Given Insulin Aspart (Novolog) Confirm Administered Dose 300 unit .ROUTE .STK-MED ONE Stop: 12/16/19 18:09 Last Admin: 12/16/19 18:12 Dose: 2 units Iopamidol (Isovue Multipack-370 (76%)) 100 ml IVPUSH ONETIME STA Stop: 12/16/19 16:00 Last Admin: 12/16/19 16:00 Dose: 100 ml Ketorolac Tromethamine (Toradol) 30 mg IVPUSH ONETIME ONE Stop: 12/16/19 11:19 Last Admin: 12/16/19 11:35 Dose: 30 mg Lidocaine HCl (Xylocaine-Mpf 1%) 5 ml INJECT ONETIME ONE Stop: 12/16/19 12:53 Last Admin: 12/16/19 15:01 Dose: Not Given Lidocaine/Epinephrine (Xylocaine 1% With Epinephrine 1:100,000) 10 ml INJECT ONETIME ONE Stop: 12/16/19 19:43 Last Admin: 12/16/19 21:25 Dose: 6 ml Morphine Sulfate (Morphine) 2 mg IVPUSH ONETIME ONE Stop: 12/16/19 13:54 Last Admin: 12/16/19 14:23 Dose: 2 mg Morphine Sulfate (Morphine) 3 mg IVPUSH ONETIME ONE Stop: 12/16/19 19:31 Last Admin: 12/16/19 19:48 Dose: 3 mg
[2019-12-17] MEDS: oxyCODONE 5 MG Tab PO PRN (08:17)
[2019-12-17] MEDS: Nicotine 14 MG/24 Hr Patch TRDERM SCH (08:18)
== END 2019-12-17 10:30 | disposition home or self-care (01) | DRG 710 ==
LOC: MW.ED 10:58 → MW.MS 14:41
PROVIDERS: ADMIT Internal Medicine; ATTEND Internal Medicine
PROC: 0D9P0ZZ Drainage of Rectum, Open Approach (ICD-10-PCS; principal; 2019-12-16)
DX: A41.9 Sepsis, unspecified organism (principal); K61.1 Rectal abscess; L03.317 Cellulitis of buttock; E78.00 Pure hypercholesterolemia, unspecified; I10 Essential (primary) hypertension; F17.210 Nicotine dependence, cigarettes, uncomplicated; E66.01 Morbid (severe) obesity due to excess calories; Z79.82 Long term (current) use of aspirin; Z68.28 Body mass index [BMI] 28.0-28.9, adult
CPT/HCPCS: 36415; 72193; 72193-26; 80048; 80053; 82962; 83605; 85025; 87040; 87070; 96361; 96365; 96375; 99285-25; A9270-GY; J1815-GY; J1885; J2270; J2543; J3370; J7030; J7040; J7050; Q9967

== ENCOUNTER 2023-01-22 07:00 | Emergency (ER) | payer BC, MEDICARE ==
[2023-01-22] MEDS ORDERED: Sodium Chloride 0.9% 1,000 ML IV ONE (07:01)
[2023-01-22 07:18] VITALS: BP 142/61; PULSE 119
[2023-01-22] MEDS ORDERED: Iopamidol 755 MG/ML 500 ML Multipack Bottle IVPUSH ONE (07:18)
[2023-01-22] MEDS ORDERED: LORazepam 2 MG/ML SDV ONE (07:24)
[2023-01-22 07:42] LABS: BLOOD UREA NITROGEN,BUN 8 mg/dL (7.0-18.0); CARBON DIOXIDE,CO2 32.3 mmol/L (21.0-32.0); CHLORIDE,CL 88 mmol/L (98-107); GLUCOSE RANDOM 254 mg/dL (74-106); LIPASE 33 U/L (73-393); SODIUM,NA 139 mmol/L (136-148)
[2023-01-22] MEDS ORDERED: Magnesium Sulfate/Water 50 ML ONE (07:42)
[2023-01-22 07:43] LABS: ESTIMATED GFR 59 mL/min (>60)
[2023-01-22] MEDS ORDERED: EPINEPHrine 1:10,000 1 MG/10 ML Syringe IVPUSH ONE ×8 (08:14→08:19)
[2023-01-22] MEDS ORDERED: Sodium Bicarbonate 8.4% 50 MEQ/50 ML Syringe IVPUSH ONE (08:20)
[2023-01-22] MEDS ORDERED: Calcium Chloride 10% 1 GM/10 ML Syringe IVPUSH ONE (08:21)
[2023-01-22] MEDS ORDERED: Magnesium Sulfate/Water 2 GM in Premix Bag 1 BAG IV ONE (08:22)
[2023-01-22] MEDS ORDERED: Amiodarone In Dextrose,Iso-Osm 150 MG in Premix Bag 1 BAG IV ONE ×4 (08:29)
[2023-01-22] MEDS ORDERED: LORazepam 2 MG/ML SDV IVPUSH ONE (08:29)
[2023-01-22] MEDS ORDERED: Potassium Chloride 20 MEQ in Premix Bag 1 BAG IV ONE (08:30)
[2023-01-22] MEDS ORDERED: Sodium Chloride 0.9% 250 ML IV ONE (08:30)
[2023-01-22] MEDS ORDERED: Amiodarone 150 MG/3 ML SDV IV STA (08:36)
== END 2023-01-22 09:18 | disposition expired ==
LOC: MW.ED 07:00
DX: I46.9 Cardiac arrest, cause unspecified (principal); R56.9 Unspecified convulsions; E87.6 Hypokalemia; I10 Essential (primary) hypertension; E11.9 Type 2 diabetes mellitus without complications; Z79.82 Long term (current) use of aspirin
CPT/HCPCS: 36415; 70450; 70496; 70498; 71045; 80053; 80307; 82009; 82550; 82803; 83605; 83690; 83735; 84443; 84484; 85025; 85610; 85730; 96374; 96375; 99285; J0171; J0282; J3475; J3480; J7030; J7050; Q9967; J3490